=== PATIENT | female | born 1990 | race Caucasian/White ===

== ENCOUNTER 2022-08-05 22:23 | Emergency (ER) | payer MEDICAID, OTHER | END 2022-08-06 00:06 | disposition home or self-care (01) | LOC: FB.ED 22:23 | DX: M25.551 Pain in right hip (principal); G89.29 Other chronic pain; Z88.0 Allergy status to penicillin; W18.30XA Fall on same level, unspecified, initial encounter | CPT/HCPCS: 81001; 99283 ==